=== PATIENT | female | born 1965 | race African-American/Black ===

== ENCOUNTER 2017-04-11 02:17 | Emergency (ER) | payer OTHER ==
[~2017-04-11] VITALS: Ht 160 cm; Wt 63.6 kg
[2017-04-11 02:20] VITALS: BP 137/70; PULSE 64; RESP 16; TEMP 98; O2SAT 100
[2017-04-11] MEDS ORDERED: LEVO.075 PO (02:26)
[2017-04-11] MEDS ORDERED: LIDOCAINE HCL 1% PF 30 ML VIAL INFIL ONE (04:15)
[2017-04-11] MEDS ORDERED: IBUP-232 PO (04:26)
[2017-04-11] MEDS ORDERED: TYLETAB34 PO (04:26)
[2017-04-11] MEDS ORDERED: BACT800T5 PO (04:26)
--- NOTE | 2017-04-11 04:26 | PD ---
HPI Chief Complaint: Bite or Sting Time Seen by Provider: 03:57 Travel History International Travel<30 days: No Contact w/Intl Traveler<30days: No Traveled to known affect area: No History of Present Illness HPI 52-year-old female presents to the emergency department for complaint of isolated pain to the distal left index finger. Patient states that the pain is throbbing. Patient denies any known injury. Patient's concerned about retained foreign body. Patient states that she recently moved acrylic nails. Patient states that she does not recall a specific injury. Patient has had no pain in the proximal digit or ascending to the hand or upper extremity. Patient is not notice purulent drainage. Patient had no fever. Patient denies any chronic medical conditions other than occasionally has arthritic type pain and hypothyroidism. Patient rates finger pain 9-10 over 10 in intensity. PFSH Past Medical History Narrative Medical Arthritis hypothyroidism no tobacco use nursing notes reviewed Thyroid Disease: Yes Tetanus Vaccination: > 5 Years Influenza Vaccination: No ?: Not Past Surgical History Surgical History: No Previous Surgery Social History Alcohol Use: Yes Tobacco Use: No Substance Use: No Allergies-Medications (Allergen,Severity, Reaction): Coded Allergies: hazelnut (Verified Allergy, Intermediate, 04/11/17) TACHYCARDIA penicillin G (Verified Allergy, Intermediate, 04/11/17) RASH Reported Meds & Prescriptions Reported Meds & Active Scripts Active Ibuprofen 600 Mg Tab 600 Mg PO Q6H PRN Tylenol-Codeine #3 (Acetaminophen-Codeine) 300-30 mg Tab 1 Tab PO Q4H PRN Bactrim DS (Sulfamethoxazole-Trimethoprim) 800-160 Mg Tab 1 Tab PO BID Reported Synthroid (Levothyroxine Sodium) 75 Mcg Tab 75 Mcg PO DAILY Review of Systems Except as stated in HPI: all other systems reviewed are Neg Physical Exam Narrative GENERAL: Well-developed well-nourished female in acute distress no respiratory distress SKIN: Warm and dry. Attention left index finger distal aspect tenderness to distal pad with area of point tenderness along the radial aspect of the nail with blanching consistent with paronychia no spontaneous drainage. No deformity no ecchymosis neurovascular tendon intact. Capillary refill brisk and less than 2 seconds range of motion intact. No ascending erythema MUSCULOSKELETAL: No cyanosis, or edema. Data Data Last Documented VS Vital Signs Date Time Temp Pulse Resp B/P (MAP) Pulse Ox O2 Delivery O2 Flow Rate FiO2 04/11/17 02:20 98.0 64 16 137/70 (92) 100 Room Air Orders Orders Lidocaine Pf 1% Inj (Xylocaine-Mpf 1% In (04/11/17 04:15) Finger (Qsy1mte) (04/11/17 ) Wound Care (04/11/17 04:57) Sulfamet-Trimeth Ds 800-160 Mg (Bactrim (04/11/17 05:00) Acetamin-Codeine 300-30 Mg (Tylenol-Code (04/11/17 05:00) Wound Culture And Gram Stain (04/11/17 04:59) MDM Medical Decision Making Medical Screen Exam Complete: Yes Emergency Medical Condition: Yes Medical Record Reviewed: Yes Differential Diagnosis paronychia, contusion, crush injury; no findings for herpetic leela Narrative Course Imaging performed of the left index finger without evidence of bony abnormality or retained radiopaque foreign body After informed verbal consent digit was cleansed with Betadine and digital block and local anesthetic injection to the left index finger was performed and I&D of the paronychia on the radial aspect of the digit was performed culture obtained patient tolerated procedure well. Procedures Procedure Narrative After the risks and benefits were discussed the following procedure was performed: INCISION AND DRAINAGE OF ABSCESS: The area was prepped and was sterilely draped. A subcutaneous wheal of 1 % Xylocaine with a total number 3 mL was used to anesthetize the area. The area was properly anesthetized. A number 11 scalpel was used to make a 1 -cm incision across the area of the abscess. Cultures were obtained. The abscess was drained an irrigated with normal saline. Sterile dressing applied. Diagnosis Primary Impression: Paronychia of finger of left hand Referrals: Primary Care Physician 2 days Patient Instructions: General Instructions Additional Instructions: Keep site clean and dry May soak site in warm water or hydrogen peroxide Complete course of antibiotic as prescribed Take pain medication as prescribed as needed Take ibuprofen as prescribed as needed for pain greater than 5/10 intensity for fever 100.4F or greater Follow-up with primary care provider or clinic in 2 days for wound check or return to the emergency department before for any concerns or change in condition Med/Other Pt SpecificInfo: Prescription(s) given Scripts Ibuprofen (Ibuprofen) 600 Mg Tab 600 MG PO Q6H Y for PAIN GREATER THAN 5, #12 TAB 0 Refills Prov: Sveta Patino MD 04/11/17 Acetaminophen-Codeine (Tylenol-Codeine #3) 300-30 mg Tab 1 TAB PO Q4H Y for PAIN, #7 TAB 0 Refills Prov: Sveta Patino MD 04/11/17 Sulfamethoxazole-Trimethoprim (Bactrim DS) 800-160 Mg Tab 1 TAB PO BID for Infection, #14 TAB 0 Refills Prov: Sveta Patino MD 04/11/17 Disposition: 01 DISCHARGE HOME Condition: Stable Sveta Patino MD Apr 11, 2017 04:26
--- NOTE | 2017-04-11 04:47 | RADRPT ---
EXAM DATE/TIME: 04/11/2017 04:29 [facility] COMPARISON: No previous studies available for comparison. INDICATIONS : Left hand, second digit pain. Possible insect bite. MEDICAL HISTORY : None. SURGICAL HISTORY : None. ENCOUNTER: Initial ACUITY: 2 days PAIN SCORE: 7/10 LOCATION: Left hand, second digit. FINDINGS: Examination of the second digit of the left hand demonstrates no evidence of fracture or dislocation. No radiopaque foreign bodies are seen. Mild soft tissue swelling seen distally of the pointer finge r. CONCLUSION: Mild soft tissue swelling without foreign body or bony abnormality. Joel Beavers MD on April 11, 2017 at 4:45 Board Certified Radiologist. This report was verified electronically.
[2017-04-11] MEDS ORDERED: SULFAMETHOXAZOLE-TRIMETHOPRIM DS 800-160 MG TAB PO ONE (05:00)
[2017-04-11] MEDS ORDERED: ACETAMINOPHEN/CODEINE 300 MG/30 MG TAB PO ONE (05:00)
== END 2017-04-11 05:51 | disposition home or self-care (01) ==
LOC: NEPC 02:17
DX: L03.012 Cellulitis of left finger (principal)
CPT/HCPCS: 10060; 73140; 86403; 87070